=== PATIENT | female | born 1960 | race Caucasian/White ===

== ENCOUNTER → 2017-03-05 | Outpatient (CLI) | payer BC ==
[~2017-03-05] MED LIST: LEVOTHYROXINE0.05 MG; METFORMIN1000 MG
--- NOTE | 2017-03-05 08:57 | RADIOLOGY REPORT PS360 ---
CT CALCIUM SCORING W/3D CLINICAL INDICATION: SINUS DONNA, PRE DM, HLD, PRE OP EVAL ORDERING PHYSICIAN: IDA GARZA MD PATIENT AGE: 56 years COMPARISON: None FINDINGS: The coronary artery calcium score is 0. No identifiable atherosclerotic plaque. Very low cardiovascular disease risk. Incidental note is made of some faint calcification of the aortic root. There is evidence of old granulomatous disease IMPRESSION: No identifiable calcified atherosclerotic plaque
== END ==
LOC: RAD 07:54
DX: R00.1 Bradycardia, unspecified (principal); E78.5 Hyperlipidemia, unspecified; Z83.3 Family history of diabetes mellitus; Z01.818 Encounter for other preprocedural examination

== ENCOUNTER → 2017-03-07 | Outpatient (CLI) | payer BC ==
--- NOTE | 2017-03-08 13:18 | RADIOLOGY REPORT PS360 ---
History and Indications: pre Diabetic, hyperlipidemia, family history, abnormal EKG Procedure: Patient received a 0.4 mg of Lexiscan, resting heart rate was 82 bpm, resting blood pressure 123/70, with Lexiscan maximum heart rate achieved was 96 bpm is less than 85% of the maximum predicted heart rate and a blood pressure was 129/74. With Lexiscan patient complained of stomach discomfort. Electrocardiogram: Resting electrocardiogram showed sinus rhythm nonspecific T wave changes, with Lexiscan there is less than 1.[address] segment depression noted from the baseline EKG. The EKG portion of the Lexiscan Myoview is nondiagnostic. Cardiac stress and resting SPECT images: Cardiac stress and resting SPECT images were obtained using an Myoview 11.2 mCi at rest and 32.5 mCi at stress, gated SPECT further analysis of segmental wall motion and calculation of ejection fraction also done. Cardiac stress and rest images show uniform myocardial activity without any segmental perfusion abnormality, either derived ejection fraction is 69% with no obvious regional wall motion abnormality, right ventricle is normal size and contractility, however there appears to be transient ischemic dilatation of the left ventricle raising the concern is for presence of balanced ischemia. Conclusion: 1. The EKG portion of the Lexiscan Myoview is nondiagnostic. 2. No obvious scintigraphic evidence of reversible ischemia seen, computer derived ejection fraction is 69% with no obvious regional wall motion abnormality, right ventricle is normal size and contractility. However there is transient ischemic dilatation of the left ventricle seen, raising the concern is for presence of balanced ischemia. 3. Abnormal Lexiscan Myoview study.
--- NOTE | 2017-03-08 14:09 | RADIOLOGY REPORT PS360 ---
PROCEDURE: 2-D M-mode and color Doppler study INDICATIONS FOR THE TEST: Chest pain COPD Heart Murmur Tobacco Smoking Palpitations Fatigue Syncope Edema Hypertension Diabetes Mellitus Rheumatic Fever SOB [place] ObesityXHyperlipidemiaX Family History HD Additional History BRADYCARDIA PATIENT INFORMATION HEIGHT: 64 WEIGHT:212 GENDER: Female B/P:118/78 2-D/M-MODE INTERPRETATION: 2-D MEASUREMENTS OBSERVED VALUES IN CMS Right Ventricular Dimension (RVDd) 2.0 Interventricular Septum (Thickness)(IVsd) 1.2 Left Ventricular Internal Dimensions(LVIDd) 5.2 Left Ventricular Posterior Wall (Thickness)(LVPWd) 1.0 Aortic Root 2.9 Aortic Cusp Separation 1.9 Left Atrial Dimensions (LAD) 3.9 2D 1. Left atrium is mildly enlarged, left ventricle is normal size, there is borderline concentric left ventricular hypertrophy, visually estimated ejection fraction of 55% with no obvious regional wall motion abnormality. 2. The right atrium and right ventricle are normal size and contractility. 3. The aortic valve is minimally thickened and fibrosed. 4. The mitral and tricuspid valve leaflets are minimally thickened. 5. The pulmonic valve is poorly visualized. 6. No significant pericardial effusion noted. DOPPLER INTERROGATION: Doppler interrogation of the aortic, mitral and tricuspid valve reveals presence of mild mitral and tricuspid regurgitation, tricuspid regurgitant jet velocity is insufficient for calculation of the right ventricular systolic pressure, grade 1 diastolic dysfunction seen without tissue Doppler evidence of raised left atrial pressure. CONCLUSION: 1. Mildly left atrium, normal left ventricular size, borderline concentric left ventricular hypertrophy, visually estimated ejection fraction 55% with no obvious regional wall motion abnormality, grade 1 diastolic dysfunction seen without tissue Doppler evidence of raised left atrial pressure. 2. Mild mitral and tricuspid regurgitation. 3. No significant pericardial effusion noted.
== END ==
LOC: RAD 10:14
DX: R00.1 Bradycardia, unspecified (principal); E78.5 Hyperlipidemia, unspecified; Z83.3 Family history of diabetes mellitus; Z01.818 Encounter for other preprocedural examination
CPT/HCPCS: A9502; J2785

== ENCOUNTER 2017-03-28 06:10 | Day surgery (SDC) | payer BC ==
[~2017-03-28] VITALS: Ht 162.6 cm; Wt 99.3 kg
--- NOTE | 2017-03-28 12:05 | Anesthesia Record ---
Anesthesia Record Part I Total IV fluids: 2900 EBL (ml): 50 Urine Output: 230 B/P: 138/84 % SaO2: 93 Pulse: 90 Resps: 10 Temp: 98 Patient is: Drowsy, Stable Stable to PACU at: 1200 at 1205
--- NOTE | 2017-03-28 12:06 | Anesthesia Record ---
Anesthesia Record Part II Discharge time: 1230 Destination: Same day surgery PACU nurse assessment review? Yes Patient is: Awake, Stable Anesthesia complications? No at 1207
--- NOTE | 2017-03-28 13:54 | Operative Note-Podiatry ---
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 Mcmanus is a 56 y/o female who presented with right ankle pain. 07/08/15 she sustained an ankle injury where she rolled the right ankle. She did see a physician and had treatment, including: icing, NSAIDs, orthotics, day ankle brace, oral steroids. She has been immobilized. She complains of right ankle pain worse with activity and long shifts of WB. Orthotics and NSAIDs offer little relief. Patient had an MRI done November 2015. 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 The x-ray and MRIs were discussed with Dr. 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 Continue conservative offered little relief of symptoms and pain was worsening. We also discussed surgery. I recommend removing the fracture fragment. Also there are posttraumatic changes to the posterior facet. I believe it is necessary to also address these changes. Would recommend subtalar joint fusion and excision of fracture fragment. Conservative treatment discussed, will not resolve symptoms. Patient has failed conservative care including anti-inflammatories, steroid injections, mobilization, bracing, stretching and orthotics. We discussed surgery. Patient is a well controlled DM, last Ha1c 6.1 and is a non-smoker. Takes vitamin D supplements. All risks and benefits were discussed including but not limited to: damage to blood vessels and nerves, bleeding, infection, wound complications, delayed or non-union of bone, continued post-traumatic arthritis, need for further surgery, need for removal of the implant, prolonged swelling of the extremity, prolonged pain, RSD/CRPS, DVT, and anesthetic complications. No guarantees were given. All questions fully answered. The patient verbalized understanding and agreed to proceed with surgery. Medical and cardiac clearance obtained. On this date and time patient was deemed an appropriate surgical candidate. With informed consent signed, the patient was taken to the operating theater. The patient was positioned supine. General anesthesia was induced. Next mid calf tourniquet was applied to the right extremity at 225 mmHg. The patient was positioned lateral. 1. Right Excision of Fracture Fragment: The right lower extremity was exsanguinated, the tourniquet was inflated at 225 mmHg. Attention was directed to the lateral aspect of the foot and ankle. A curvilinear incision was mapped out extending proximal and posterior to the fibula along the course of the peroneal tendons and dorsal extending over the calcaneal cuboid junction. Dissection was carried through skin to subcutaneous tissue with care taken to maintain surgical hemostasis and safely retract neurovascular structures. There was a large lipoma overlying the lateral subtalar joint. It was dissected and sent as a specimen. Sural nerve was identified and retracted inferiorly throughout the procedure. Dissection was carried through deep fascia to the level of the bone. The talus had severe erosions. Arthritic degenerative changes noted throughout the posterior STJ. There was a piece of the posterior talus noted to be fragmented off in the posterior STJ. Utilizing sharp and blunt dissection technique the fracture fragment was identified and excised. Attention was directed more posterior where another fracture fragment was identified. 2 more pieces were removed. The largest fracture fragment measured 1.2 cm and was also sent as a specimen. 2. Right Subtalar Joint Arthrodesis: Attention was burred directed back to the subtalar joint where joint resection was performed. An osteotome and curette was then used to resect the remaining cartilage off the talus and calcaneus. A oval bur was used to punch the subchondral bone plate, down to the level of good healthy bleeding bone. Once thr joint were prepped to the level good healthy bleeding bone the wound was flushed with copious amounts of normal sterile saline. Intraoperative fluoroscopy was utilized to check position. Temporary fixation was inserted to check reduction. Intraoperative fluoroscopy was utilized and reduction was deemed to be adequate. At this point temporary fixation was removed. Joints were further prepped with a 4-0 round linda. The wound was once again flushed. A 2-0 drill bit was then used to further fenestrate the joints down to the level good healthy bleeding bone. Melendrez [employer] Augment was then inserted into the 2- 0 drill bits. Ignite allomatrix bone putty was then used between the two bones. The subtalar joint was reduced and 2 partially threaded cannulated 7.0 mm beams were inserted from posterior to anterior compressing the STJ. Calcaneal axial, lateral, ankle views were obtained and deemed to be appropriate in terms of reduction and fixation. Adequate compression was noted. Adequate reduction of the deformity was noted and no presence of fracture fragment noted. 3. Application of Amniotic Membrane: Deep closure was performed with 2-0 Vicryl on the lateral incision. After deep closure,a 10 flat MERCY drain was inserted. The subcutaneous layer was closed with 2-0 and 3-0 Vicryl. The skin was closed with 3-0 nylon in a Horizontal mattress fashion. Viaflow was then injected into all incisions. The tourniquet was deflated at 2 hrs 3mins and immediate hyperemic response was noted to the digits. The wounds were cleansed. 30 cc 0.5% marcaine plain used as a regional ankle block. Xerofoam, dry sterile dressing was then applied followed by a below knee posterior splint. The patient was awoken from anesthesia and transfer to recovery with vital signs stable and neurovascular status intact. Specimens: Right foot lipoma Right fragment fragment Materials: 10 Flat MECRY drain Ca[employer]Benefits 7.0 mm cannulated Beam x 2 (70, 75 mm) Viaflow Ignite Augment Discharge/Plan: Patient is to maintain posterior splint clean dry and intact. Ice behind the knee and elevate two pillows. Non weight bearing to the right lower extremity with DME assistance. Patient has walker, wheelchair, and rolling knee scooter. Rx given for Percocet 7.5 #30, Zofran #30, Lovenox 40mg #21, and Motrin 800mg # 60. Obtain post op films, right foot, os calc. Follow up with me in one week for wound check. at 1607 Right foot lipoma Right fragment fragment Materials: Melend[employer] medical 7.0 mm cannulated Beam x 2 (70, 75 mm) Viaflow Ignite Augment Discharge/Plan: Patient is to maintain posterior splint clean dry and intact. Ice behind the knee and elevate two pillows. Non weight bearing to the right lower extremity with DME assistance. Patient has walker, wheelchair, and rolling knee scooter. Rx given for Percocet 7.5 #30, Zofran #30, Lovenox 40mg #21, and Motrin 800mg # 60. Obtain post op films, right foot, os calc. Follow up with me in one week for wound check.
[2017-03-28 13:58] VITALS: BP 148/73
--- NOTE | 2017-03-28 14:36 | RADIOLOGY REPORT PS360 ---
HEEL (OSCALSIS)-RT HISTORY: Follow-up surgery S/P RT ANKLE ARTHRODESIS ORDERING PHYSICIAN: TONY CLEVELAND DPM PATIENT AGE: 56 years COMPARISON: None FINDINGS: Status post fusion of the talocalcaneal joint with 2 screws present from the posterior aspect of the calcaneus extending into the talus with good alignment. Cortical irregularity involves the posterior aspect of the talocalcaneal joint with bony debris. IMPRESSION: Status post arthrodesis of the talocalcaneal joint with good alignment
--- NOTE | 2017-03-28 14:36 | RADIOLOGY REPORT PS360 ---
FOOT-RT-3 VIEWS HISTORY: Follow-up arthrodesis S/P RT ANKLE ARTHRODESIS ORDERING PHYSICIAN: TONY CLEVELAND DPM PATIENT AGE: 56 years COMPARISON: 01/09/2017 FINDINGS: Status post arthrodesis with fusion of the talocalcaneal joint. 2 oblique screws extend from the posterior aspect of the calcaneus into the talus. Bony cortical irregularity is present at the posterior aspect of the talocalcaneal joint. There is good alignment. IMPRESSION: Good alignment status post arthrodesis of the talocalcaneal joint posteriorly
--- NOTE | 2017-03-28 14:38 | RADIOLOGY REPORT PS360 ---
FOOT-RT-2 VIEWS HISTORY: RT ANKLE ARTHORDESIS ORDERING PHYSICIAN: TONY CLEVELAND DPM PATIENT AGE: 56 years COMPARISON: None FINDINGS: 3 views submitted with the C-arm show interval placement of 2 screws from the posterior aspect of the calcaneus obliquely into the talus one in the central aspect of the talus and 1 directed towards the anterior aspect of the talus with good alignment. IMPRESSION: Status post talocalcaneal fusion
[2017-03-28 16:48] LABS: URINE BILIRUBIN - DIPSTICK NEGATIVE (NEG); URINE BLOOD NEGATIVE (NEG)
== END 2017-03-28 13:41 | disposition home or self-care (01) ==
LOC: SDC 06:10
PROVIDERS: Podiatrist
PROC: 0QBL0ZZ Excision of Right Tarsal, Open Approach (ICD-10-PCS; 2017-03-28)
PROC: 2W2QX4Z Dressing of Right Lower Leg using Bandage (ICD-10-PCS; 2017-03-28)
PROC: 0QSL04Z Reposition Right Tarsal with Internal Fixation Device, Open Approach (ICD-10-PCS; principal; 2017-03-28 07:30)
DX: M19.171 Post-traumatic osteoarthritis, right ankle and foot (principal); S92.131 Displaced fracture of posterior process of right talus; M25.871 Other specified joint disorders, right ankle and foot; D17.79 Benign lipomatous neoplasm of other sites; X58.XXXD Exposure to other specified factors, subsequent encounter; E11.9 Type 2 diabetes mellitus without complications; Z79.84 Long term (current) use of oral hypoglycemic drugs; Z79.899 Other long term (current) drug therapy; E03.9 Hypothyroidism, unspecified; Z83.3 Family history of diabetes mellitus; Z82.49 Family history of ischemic heart disease and other diseases of the circulatory system; Z80.9 Family history of malignant neoplasm, unspecified; Q68.8 Other specified congenital musculoskeletal deformities
CPT/HCPCS: C1713; C1762; J2405